=== PATIENT | female | born 1950 | race Caucasian/White ===

== ENCOUNTER → 2018-01-22 | Outpatient (CLI) | payer OTHER ==
[2018-01-26 15:07] LABS: HPV 16 Negative (Negative); HPV 18 Negative (Negative); HPV OTHER HR TYPES Negative (Negative)
== END | disposition home or self-care (01) ==
LOC: LAB 18:50 → LAB SHORT 18:50
PROVIDERS: Nurse Practitioner Women's Health
DX: Z12.4 Encounter for screening for malignant neoplasm of cervix (principal); N95.2 Postmenopausal atrophic vaginitis; Z91.89 Other specified personal risk factors, not elsewhere classified
CPT/HCPCS: 87070; 87205; 87624; G0123

== ENCOUNTER → 2018-09-03 | Outpatient (CLI) | payer MEDICARE ==
[~2018-09-03] MED LIST: ALFALFA250 MG PO; ASCO500 PO; DRY EYE RELIEF BOTHEYES; FLAX PO; FOLI1 PO; GINKGO60 MG PO; HEALTHY EYES T1 EACH PO; SV GLUCOSAMINE PO; TURMERIC500 M2 PO; YUVAFEM10 MCG VAG
[2018-09-03 12:43] LABS: Source, Urine Catheter
[2018-09-03 12:54] LABS: Blood, Urine 5+ (Neg); Glucose Qualitative, Urine Neg (Neg); Ketones, Urine Neg (Neg); Leukocyte Esterase, Urine 3+ (Neg); Nitrite, Urine Pos (Neg); Protein, Urine 3+ (Neg); Specific Gravity, Urine 1.015 (1.003-1.022); Urobilinogen, Urine 1+ (Normal)
[2018-09-03 13:12] LABS: Appearance, Urine Clear (Clear); Bilirubin, Urine 1+ (Neg); Color, Urine Amber (P-Yellow)
[2018-09-03 13:14] LABS: Bacteria Many /hpf; Red Blood Cells, Urine TNTC /hpf (0-2); Squamous Epithelial Cells Rare /hpf (Few); White Blood Cells, Urine TNTC /hpf (0-5)
== END | disposition home or self-care (01) ==
LOC: LAB 12:42 → LAB SHORT 12:42
PROVIDERS: Nurse Practitioner Women's Health
DX: R30.0 Dysuria (principal)
CPT/HCPCS: 81001; 87077; 87086; 87186

== ENCOUNTER 2020-06-21 18:25 | Emergency (ER) | payer OTHER ==
[~2020-06-21] VITALS: Ht 165.1 cm; Wt 83.9 kg
[2020-06-21] MEDS ORDERED: LOSA25 PO (18:41)
[2020-06-21 18:51] LABS: BASOPHILS ABSOLUTE AUTO 0.03 K/mm3 (0.00-0.23); BASOPHILS PERCENT AUTO 1 % (0-2); EOSINOPHILS PERCENT AUTO 5 % (0-6); Hemoglobin 14.1 g/dL (11.5-16.0); IMMATURE GRAN ABSOLUTE AUTO 0.01 K/mm3 (0.00-0.10); IMMATURE GRAN PERCENT AUTO 0 % (0-1); LYMPHOCYTES ABSOLUTE AUTO 1.84 K/mm3 (0.84-5.20); LYMPHOCYTES PERCENT AUTO 28 % (21-46); MONOCYTES ABSOLUTE AUTO 0.51 K/mm3 (0.16-1.47); MONOCYTES PERCENT AUTO 8 % (4-13); Mean Corpuscular HGB 28.3 pg (26.0-34.0); Mean Corpuscular HGB Conc 32.8 g/dL (31.5-36.5); Mean Corpuscular Volume 86 fL (80-100); Mean Platelet Volume 9.8 fL (9.1-12.4); NEUTROPHILS ABSOLUTE AUTO 3.78 K/mm3 (1.96-9.15); NEUTROPHILS PERCENT AUTO 58 % (41-73); Platelet Count 241 K/mm3 (150-400); RDW Coefficient Variation 14.2 % (11.7-14.2); RDW Standard Deviation 45.2 fL (35.1-46.3); Red Blood Cell Count 4.99 M/mm3 (3.80-5.20); White Blood Cell Count 6.47 K/mm3 (4.00-11.30)
[2020-06-21 18:51] LABS: Source, Urine Clean Catch
[2020-06-21 19:00] LABS: Appearance, Urine Clear (Clear); Bilirubin, Urine Neg (Neg); Blood, Urine 2+ (Neg); Color, Urine Yellow (P-Yellow); Glucose Qualitative, Urine Neg (Neg); Ketones, Urine Neg (Neg); Leukocyte Esterase, Urine Neg (Neg); Nitrite, Urine Neg (Neg); Protein, Urine Neg (Neg); Specific Gravity, Urine 1.005 (1.003-1.022); Urobilinogen, Urine NORM (Normal)
[2020-06-21 19:11] LABS: Bacteria Few /hpf; Squamous Epithelial Cells Few /hpf (Few); White Blood Cells, Urine 0-2 /hpf (0-5)
[2020-06-21 19:13] LABS: Alanine Aminotransfer (ALT/SGP 27 U/L (12-78); Albumin, Blood 3.9 g/dL (3.4-5.0); Albumin/Globulin Ratio 0.9 (0.8-1.8); Alk Phos 89 U/L (50-136); Anion Gap 5 mmol/L (6-16); Aspartate Aminotrans (AST/SGOT 15 U/L (12-37); Bilirubin, Total 0.3 mg/dL (0.1-1.0); Blood Urea Nitrogen 19 mg/dL (8-24); Bun/Creatinine Ratio 22.2 (12.0-20.0); CO2, Blood 28 mmol/L (21-32); Calcium, Blood 9.3 mg/dL (8.5-10.1); Chloride, Blood 109 mmol/L (98-108); Creatinine, Blood 0.86 mg/dL (0.40-1.00); Globulin, Blood 4.3 g/dL (2.2-4.0); Glomerular Filtration Rate >60 (60-); Glucose, Blood 92 mg/dL (70-99); Potassium, Blood 3.6 mmol/L (3.5-5.5); Sodium, Blood 142 mmol/L (136-145); Total Protein, Blood 8.2 g/dL (6.4-8.2); Troponin I <0.015 ng/mL (0.000-0.040)
== END 2020-06-21 20:11 | disposition home or self-care (01) ==
LOC: ER 18:25
PROVIDERS: Emergency Medicine
DX: I10 Essential (primary) hypertension (principal); Z79.899 Other long term (current) drug therapy; Z91.030 Bee allergy status; Z87.442 Personal history of urinary calculi
CPT/HCPCS: 36415; 80053; 81001; 84484; 85025; 93005; 93010; 96374; 99283-25

== ENCOUNTER 2021-02-07 06:06 | Day surgery (SDC) | payer OTHER ==
[2021-02-06 11:15] LABS: BASOPHILS ABSOLUTE AUTO 0.02 K/mm3 (0.00-0.23); BASOPHILS PERCENT AUTO 0 % (0-2); EOSINOPHILS ABSOLUTE AUTO 0.26 K/mm3 (0.00-0.68); EOSINOPHILS PERCENT AUTO 4 % (0-6); Hematocrit 39.4 % (33.0-51.0); Hemoglobin 12.6 g/dL (11.5-16.0); IMMATURE GRAN ABSOLUTE AUTO 0.02 K/mm3 (0.00-0.10); IMMATURE GRAN PERCENT AUTO 0 % (0-1); LYMPHOCYTES ABSOLUTE AUTO 1.57 K/mm3 (0.84-5.20); LYMPHOCYTES PERCENT AUTO 21 % (21-46); MONOCYTES ABSOLUTE AUTO 0.68 K/mm3 (0.16-1.47); MONOCYTES PERCENT AUTO 9 % (4-13); Mean Corpuscular HGB 28.1 pg (26.0-34.0); Mean Corpuscular Volume 88 fL (80-100); Mean Platelet Volume 9.2 fL (9.1-12.4); NEUTROPHILS ABSOLUTE AUTO 4.92 K/mm3 (1.96-9.15); NEUTROPHILS PERCENT AUTO 66 % (41-73); Platelet Count 284 K/mm3 (150-400); RDW Coefficient Variation 14.5 % (11.7-14.2); RDW Standard Deviation 46.8 fL (35.1-46.3); Red Blood Cell Count 4.48 M/mm3 (3.80-5.20); White Blood Cell Count 7.47 K/mm3 (4.00-11.30)
[2021-02-06 11:31] LABS: Anion Gap 7 mmol/L (6-16); Blood Urea Nitrogen 15 mg/dL (8-24); Bun/Creatinine Ratio 19.3 (12.0-20.0); CO2, Blood 27 mmol/L (21-32); Chloride, Blood 108 mmol/L (98-108); Creatinine, Blood 0.78 mg/dL (0.40-1.00); Glomerular Filtration Rate >60 (60-); Glucose, Blood 81 mg/dL (70-99); Sodium, Blood 142 mmol/L (136-145)
[~2021-02-07] VITALS: Ht 165.1 cm; Wt 82.1 kg
[~2021-02-07 06:06] MED LIST changes: +ENAL10 PO; +Estrace Vagin42.5 GM VAG; +LOSA25 PO
[2021-02-07] MEDS ORDERED: LOSARTAN POTASS50 MG (06:23)
--- NOTE | 2021-02-07 07:00 | NUR ---
Ambulatory in Day Surgery, HERE WITH MANDIE BRIAN. History, Chart, Medications and Allergies reviewed before start of procedure. Lungs clear T/O to Auscultation. Patient confirms NPO status and agrees with scheduled surgery. Pre-Op teaching done. Pt verbalizes understanding.
--- NOTE | 2021-02-07 10:07 | NUR ---
02/07/21 GURJIT CUELLO 500ML OF CLEAR AND YELLOW URINE NOTED TO PTS JOHNSON DRAINAGE BAG AFTER PROCEDURE.
--- NOTE | 2021-02-07 11:26 | NUR ---
PATIENT CAME BACK FROM PACU TODAY 02/07/21 AT 1120. POD 0 LAP TOTAL HYSTER PATIENT IS ALERT AND ORIENTED X4. VS ARE WNL AND IS ON RA. PATIENT DENIES PAIN AT THIS TIME THOUGH IS AWARE OF HER PRN MEDICATIONS WHEN NEEDED. SHE HAS 3 LAP SITES ON HER ABD THAT HAVE BANDAIDS ON THEM. ALL OF THEM ARE C/D/I. HER TREMAINE PAD HAS A SCANT AMOUNT OF BLOOD ON IT. SHE TOLERATED A SMALL AMOUNT OF PO INTAKE. SHE IS CURRENTLY LAYING IN BED. CALL LIGHT WITHIN REACH.
--- NOTE | 2021-02-07 14:59 | NUR ---
DISCHARGE NOTE: PATIENT WAS EDUCATED ON DISCHARGE INSTRUCTIONS. SHE VERBALIZED UNDERSTANDING OF INSTRUCTIONS. PATIENT HAD ALREADY RECIEVED HARD PERSCRIPTION PRIOR TO SURGERY AND IS "AT HOME". SHE HAD 3 LAP SITES WITH BANDAIDS OVER THEM THAT WERE C/D/I. PATIENT WAS ALSO GIVEN AN ABD BINDER WHICH SHE APPRECIATED. PAIN IS CONTROLLED WITH 1 PAIN PILL. SHE TOLERATED PO INTAKE AND WAS VOIDING. PATIENT AMBULATED IN THE ROOM WITH MINIMAL HELP. BOTH IVS WERE TAKEN OUT AND WERE WNL. SHE IS DRESSED AND HAS HER ITEMS IN THE ROOM GATHERED. SHE IS CURRENTLY BEING WHEELCHAIRED OUT TO HER FAMILY [employer] CAR TO BE TAKEN HOME.
== END 2021-02-07 15:05 | disposition home or self-care (01) ==
LOC: ORSCMMR 06:06 → ORD 07:30 → SURS 11:00 → ORSCMMR 15:05
PROVIDERS: Obstetrics & Gynecology
PROC: 8E0W4CZ Robotic Assisted Procedure of Trunk Region, Percutaneous Endoscopic Approach (ICD-10-PCS; principal; 2021-02-07 07:30)
PROC: 0UT24ZZ Resection of Bilateral Ovaries, Percutaneous Endoscopic Approach (ICD-10-PCS; principal; 2021-02-07 07:30)
PROC: 0UT74ZZ Resection of Bilateral Fallopian Tubes, Percutaneous Endoscopic Approach (ICD-10-PCS; principal; 2021-02-07 07:30)
PROC: 0UT94ZZ Resection of Uterus, Percutaneous Endoscopic Approach (ICD-10-PCS; principal; 2021-02-07 07:30)
DX: N81.2 Incomplete uterovaginal prolapse (principal); N39.3 Stress incontinence (female) (male); Z85.3 Personal history of malignant neoplasm of breast; N84.0 Polyp of corpus uteri; N80.0 Endometriosis of uterus; D25.9 Leiomyoma of uterus, unspecified; K66.0 Peritoneal adhesions (postprocedural) (postinfection); N83.292 Other ovarian cyst, left side; N83.291 Other ovarian cyst, right side; I10 Essential (primary) hypertension; Z79.899 Other long term (current) drug therapy
CPT/HCPCS: 58571; S2900; 36415; 80048; 84703; 85025; 86850; 86900; 86901; 88307; A9270; J0690; J1100; J1885; J2250; J2370; J2405; J2704; J3010; J7120

== ENCOUNTER 2022-10-21 11:09 | Day surgery (SDC) | payer OTHER ==
[2022-10-21] VITALS (12 sets, daily range): BP systolic 99–138; BP diastolic 53–77
[~2022-10-21] VITALS: Ht 165.1 cm; Wt 82.9 kg
[~2022-10-21 11:09] MED LIST changes: +GEMTESA75 MG PO; +LOSARTAN POTASS50 MG PO; +MULVITA PO
--- NOTE | 2022-10-21 11:56 | NUR ---
Ambulatory in Day Surgery Patient confirms NPO status and agrees with scheduled surgery. Pre-Op teaching done. Pt verbalizes understanding. History, Chart, Medications and Allergies reviewed before start of procedure.
--- NOTE | 2022-10-21 12:20 | NUR ---
NOKARTHIK X3 AMPULES USED TO CLEARN NARES BILAT PER DR MORENO.
--- NOTE | 2022-10-21 15:12 | NUR ---
PATIENT CAME BACK FROM PACU TODAY AT 1500. POD 0 LEFT TKA PATIENT IS A&OX4. PATIENT IS ON 3L NC WITH >90% OXYGEN SATS BUT OTHERWISE IS WNL ON VS. PATIENT HAD A SPINAL DURING PROCEDURE AND REPORTS NUMBNESS FROM THE WAIST DOWN AT THIS TIME. PEDAL PULSES ARE STRONG AND WARM TO TOUCH. DENIES NAUSEA OR VOMITING. SHE IS TOLERATING SMALL AMOUNTS OF PO INTAKE AT THIS TIME. HER LEFT KNEE HAS THE CLEAR MESH THAT IS C/D/I WELL POLAR PACK IN PLACE. SHE IS LAYING IN BED WITH CALL LIGHT IN REACH.
--- NOTE | 2022-10-21 18:35 | NUR ---
SHIFT SUMMARY: PATIENT STILL REPORTS NUMBNESS TO BOTH LEGS BUT IS ABLE TO MOVE HER FEET MORE. HER LEFT KNEE HAS A CLEAR MESH DRESSING OVER HER INCISION THAT IS C/D/I. PEDAL PULSES ARE STRONG AND WARM TO TOUCH. SHE IS A&OX4. VS ARE WNL AND IS ON RA. PATIENT DENIES PAIN BUT HAS RECIEVED PO TYLENOL AND IV TORADOL. POLAR PACK IS IN PLACE. SHE IS TOLERATING PO INTAKE. PATIENT HAS YET TO VOID BUT WILL BLADDER SCAN PER PROTOCOL. SHE IS LAYING IN BED WITH CALL LIGHT IN REACH.
[2022-10-22 04:44] LABS: BASOPHILS PERCENT AUTO 0 % (0-2); EOSINOPHILS PERCENT AUTO 0 % (0-6); Hematocrit 33.7 % (33.0-51.0); Hemoglobin 11.4 g/dL (11.5-16.0); IMMATURE GRAN ABSOLUTE AUTO 0.04 K/mm3 (0.00-0.10); IMMATURE GRAN PERCENT AUTO 0 % (0-1); LYMPHOCYTES ABSOLUTE AUTO 0.88 K/mm3 (0.84-5.20); LYMPHOCYTES PERCENT AUTO 7 % (21-46); MONOCYTES ABSOLUTE AUTO 0.89 K/mm3 (0.16-1.47); MONOCYTES PERCENT AUTO 7 % (4-13); Mean Corpuscular HGB 29.4 pg (26.0-34.0); Mean Corpuscular HGB Conc 33.8 g/dL (31.5-36.5); Mean Corpuscular Volume 87 fL (80-100); Mean Platelet Volume 9.4 fL (9.1-12.4); NEUTROPHILS ABSOLUTE AUTO 10.57 K/mm3 (1.96-9.15); NEUTROPHILS PERCENT AUTO 85 % (41-73); Platelet Count 199 K/mm3 (150-400); RDW Coefficient Variation 13.8 % (11.7-14.2); RDW Standard Deviation 44.1 fL (35.1-46.3); Red Blood Cell Count 3.88 M/mm3 (3.80-5.20); White Blood Cell Count 12.38 K/mm3 (4.00-11.30)
[2022-10-22 04:58] VITALS: BP 127/60
[2022-10-22 05:00] LABS: Bun/Creatinine Ratio 28.8 (12.0-20.0); Calcium, Blood 8.4 mg/dL (8.5-10.1); Creatinine, Blood 0.76 mg/dL (0.40-1.00); Magnesium, Blood 1.9 mg/dL (1.6-2.4); Potassium, Blood 4.5 mmol/L (3.5-5.5)
--- NOTE | 2022-10-22 05:27 | NUR ---
SHIFT SUMMARY AOX4. VSS. POD 1-L TOTAL KNEE REPAIR. REPORTS 3/10 PAIN L KNEE, REPORTED MILD NUMBNESS TO L SIDE OF L KNEE AT BEGINNING OF SHIFT. ABLE TO WIGGLE TOES, CAP REFILL <3 SEC, WARM FEET & DENIES N/T THIS AM. AQUACEL DRESSING C/D/I. TOLERATING PO INTAKE, DENIES N/V. UP AMBULATING SBY ASSIST c FWW TO RESTROOM TO VOID. CALL LIGHT IN REACH & ABLE TO MAKE NEEDS KNOWN.
[2022-10-22 07:16] VITALS: BP 127/57
[2022-10-22] MEDS ORDERED: XARELTO20 MG PO (11:12)
[2022-10-22] MEDS ORDERED: OXYC5 PO (11:12)
[2022-10-22] MEDS ORDERED: BACTRIM DS TAB1 EAC1 PO (11:12)
[2022-10-22 14:12] VITALS: BP 135/54
--- NOTE | 2022-10-22 14:50 | NUR ---
DISCHARGE PT AND FAMILY MEMBER WERE PROVIED WITH WRITTEN AND VERBAL DISCHARGE INSTRUCTIONS, THEY REPORTED UNDERSTANDING. PT MET ALL GOALS FROM PHYSICAL THERAPY AND NURSING PRIOR TO DISCHARGE. VSS PRIOR TO DISCHARGE. PT PROVIDED WITH CLEAN DRESSINGS. PT ESCORTED OUT IN W/C BY BENJA CHAIDEZ AT APPROXIMATELY 1425.
== END 2022-10-22 14:25 | disposition home or self-care (01) ==
LOC: ORSCMMR 11:09 → ORD 12:30 → ORSCMMR 12:30 → SURS 14:55 → ORSCMMR 10-22 14:25
PROVIDERS: Orthopaedic Surgery
PROC: 0SRD0JA Replacement of Left Knee Joint with Synthetic Substitute, Uncemented, Open Approach (ICD-10-PCS; principal; 2022-10-21 12:30)
DX: M17.12 Unilateral primary osteoarthritis, left knee (principal); Z96.651 Presence of right artificial knee joint; I10 Essential (primary) hypertension; Z79.82 Long term (current) use of aspirin; Z79.899 Other long term (current) drug therapy
CPT/HCPCS: 27447; 0055T; 36415; 73560-LT; 80048; 83735; 85025; 94760; 97110; 97116; 97162; 97530; A9270; C1776; J0171; J0690; J0735; J1100; J1885; J2250; J2405; J2704; J2795; J3010; J7120

== ENCOUNTER 2022-10-27 21:57 | Emergency (ER) | payer OTHER ==
[~2022-10-27] VITALS: Ht 165.1 cm; Wt 81.7 kg
[~2022-10-27 21:57] MED LIST changes: +BACTRIM DS TAB1 EAC1 PO; +OXYC5 PO; +XARELTO20 MG PO
[2022-10-27 22:09] VITALS: BP 139/72
== END 2022-10-28 00:58 | disposition home or self-care (01) ==
LOC: ER 21:57
DX: M96.840 Postprocedural hematoma of a musculoskeletal structure following a musculoskeletal system procedure (principal); Y83.8 Other surgical procedures as the cause of abnormal reaction of the patient, or of later complication, without mention of misadventure at the time of the procedure; Z91.030 Bee allergy status; Z91.048 Other nonmedicinal substance allergy status; Z79.899 Other long term (current) drug therapy
CPT/HCPCS: 99282